=== PATIENT | male | born 1930 | race Caucasian/White ===

== ENCOUNTER 2016-10-08 14:52 | Inpatient (IN) | payer OTHER ==
[~2016-10-08] VITALS: Ht 182.9 cm; Wt 67.2 kg
--- NOTE | ~2016-10-08 | H ---
[facility] [place] [address] HISTORY AND PHYSICAL Name: DEANNA WEBER Room #: 246-P ADM IN M.R.#: [id number] Admission: 10/08/16 Attend Phys: Julian Tobar MD Discharge: Date of : [birth year]/24/[birth year] Report #: [id number] THIS REPORT FOR: //name// CC: Hans Tobar DATE OF SERVICE: 10/08/2016 History was primarily obtained from talking to the ER physician. The patient was referred from the [facility] secondary to altered mental status. HISTORY OF PRESENT ILLNESS: The patient is an 85-year-old male with history of urinary tract infection, was referred from the [facility] because of altered mental status and confusion. The patient is awake and he follows simple commands. He is oriented to self. He knows that is in the hospital. He does deny any complaint other than a productive cough. No chest pain, no dizziness. He is mostly bedridden and wheelchair bound. The patient was recently started on antibiotics for UTI with ciprofloxin at the [facility]. PAST MEDICAL HISTORY: No family available, no records from the [facility]. We will try to obtain records from the [facility]. ALLERGIES: No known drug allergy. HOME MEDICATIONS: Cipro has been included. SOCIAL HISTORY: Denies smoking, alcohol abuse, or illicit drug abuse. REVIEW OF SYSTEMS: Limited because of his altered mental status. CONSTITUTIONAL: He denies fever or chills. THROAT: Denies any sore throat. CARDIOVASCULAR: Denies any chest pain, no dizziness. RESPIRATORY: He does have a cough, which is productive. GASTROINTESTINAL: Denies any nausea, vomiting, abdominal pain. NEUROLOGIC: Denies any lower extremity pain. PHYSICAL EXAMINATION: VITAL SIGNS: Reviewed. Blood pressure 127/70, heart rate of 100 per minute, afebrile. He is satting 95% on room air. GENERAL: He does have a bad productive cough. He follows simple commands. EYES: Pupils are equal, reactive to light. THROAT: He has a dry oral mucosa. NECK: Supple, no JVD, no bruit, no lymphadenopathy. CARDIOVASCULAR SYSTEM: S1, S2. No S3, no murmur. [facility] [address] [place] [address] HISTORY AND PHYSICAL Name: DEANNA WEBER Room #: 246-P ADM IN M.R.#: [id number] Admission: 10/08/16 Attend Phys: Julian Tobar MD Discharge: Date of : 11/24/[birth year] Report #: [id number] CHEST: Bilateral air entry present, no crackles, no wheeze. ABDOMEN: Soft, bowel sounds present. No mass, no organomegaly, no tenderness. PERIPHERAL: No pedal edema. No calf tenderness. NEUROLOGICAL: The patient is awake. He is oriented to self. He knows that he is in the hospital. He is not oriented to time. He follows simple commands and able to move all 4 extremities. LABORATORY DATA: Reviewed. Chest x-ray was hyperinflated, chronic lung changes with no acute abnormality. There is some fibrosis. White count is markedly elevated at 24.7. BUN and creatinine are within normal limits. Platelets 256. Lactic acid is 1.8. AST and ALT are within normal limits. ProBNP is 928. Albumin is 3.8. EKG showed normal sinus rhythm with premature complexes. ASSESSMENT AND PLAN: 1. Altered mental status, most likely metabolic encephalopathy secondary to infectious process, could be urinary tract infection. He does have a productive cough ____. Chest x-ray showed chronic changes. We will obtain UA. We will repeat his chest x-ray in the morning. The patient will be continued on Zosyn and vancomycin. We will also obtain a CT scan of the brain to rule out any intracranial abnormality. 2. Deep venous thrombosis prophylaxis. He will be placed on SCD on the leg for DVT prophylaxis. We will repeat his labs in the morning. We will obtain his medical records from his [facility]. <ELECTRONICALLY SIGNED> By: Julian Tobar MD 10/09/16 1320 1935 99 Julian Tobar MD /nt
--- NOTE | ~2016-10-08 | HC ---
[facility] [place] [address] CONSULTATION Name: GUSDEANNA Room #: 311-P [facility] IN M.R.#: [id number] Admission: 10/08/16 Attend Phys: Julian Tobar MD Discharge: Date of : [birth year]/24/[birth year] Report #: [id number] THIS REPORT FOR: //name// CC: Hans Tobar DATE OF SERVICE: 10/10/2016 CHIEF COMPLAINT: Gallstones. HISTORY OF PRESENT ILLNESS: The patient is a very pleasant 85-year-old gentleman, admitted to [facility] on October 08. He was admitted with productive cough and was noted to have significant pneumonia with a dense pulmonary infiltrate visualized on CT. He also has history of atrial fibrillation and recent altered mental status. The patient is a resident at a local long-term facility. He has been recently treated for urinary tract infection. His past medical history is incomplete as the patient is unable to give excellent history. He does answer questions to some degree and follows commands. He is also pleasant and somewhat conversive, although he is quite forgetful. During his workup, gallstones were noted on CT scan and therefore, ultrasound of the abdomen was obtained, which showed cholelithiasis without gallbladder wall thickening or pericholecystic fluid. Bile ducts are unremarkable. ALLERGIES: No known drug allergies. HOME MEDICATIONS: The patient was recently on Cipro, no other listed home medications. SOCIAL HISTORY: Negative for tobacco, ETOH or drug use. REVIEW OF SYSTEMS: CONSTITUTIONAL: Negative for fevers or chills. HEENT: No dysphagia or odynophagia. The patient reports that he has been swallowing well. CARDIOVASCULAR: No chest pain or palpitations. PULMONARY: He does have a productive cough, no hemoptysis reported. GASTROINTESTINAL: Denies abdominal pain, nausea, vomiting or diarrhea. NEUROLOGIC: Denies focal weakness or tingling. GENITOURINARY: Denies dysuria or hematuria. ENDOCRINE: No heat or cold intolerance. PSYCHIATRIC: No depression or anxiety. PHYSICAL EXAMINATION: GENERAL: The patient is awake, alert and oriented. He is maintaining a sat in the high 90 percentiles on oxygen per nasal cannula. Normotensive at this time. [facility] [address] [place] [address] CONSULTATION Name: DEANNA WEBER Room #: 311-P [facility] IN M.R.#: [id number] Admission: 10/08/16 Attend Phys: Julian Tobar MD Discharge: Date of : [birth year] Report #: [id number] HEENT: Head is atraumatic and normocephalic. He does appear appropriate for stated age. No icterus is appreciated. Cranial nerves are grossly intact. NECK: Supple, with no jugular venous distention. LUNGS: Coarse bilateral. ABDOMEN: Soft, nondistended, nontender to palpation. No Leone sign. No rebound or guarding is appreciated. NEUROLOGIC: The patient moves all extremities and follows commands without obvious focal deficits. LABORATORY STUDIES: Reviewed. White count of 11.3, hemoglobin of 13.9, platelets of 213. BUN of 25, creatinine 0.9. Lactate of 1.3. TSH of 1.624, total bilirubin of 0.9. Urinalysis shows 2+ protein, 3+ blood, and 1-[address] scan of the chest from October 09 showed dense consolidation of pneumonia in the medial left lung base, right upper and right lower lobes with changes consistent with bronchiectasis and blebs; some mediastinal adenopathy, likely reactive. Old calcified hematoma noted in the spleen. Gallbladder distention with cholelithiasis was noted. IMPRESSION: An 85-year-old male patient admitted from long-term facility with pneumonia and productive cough. Incidental finding of cholelithiasis on CT scan of the chest. Ultrasound of the abdomen showed no gallbladder wall thickening, no pericholecystic fluid. The patient has no abdominal pain at this time and has been tolerating oral intake without pain, nausea or vomiting prior to admission. No evidence of acute cholecystitis or other hepatobiliary issues at this time. No recommendation for surgical intervention. Would recommend that the patient's diet be advanced once swallow evaluation has been completed. Consultation very much appreciated. <ELECTRONICALLY SIGNED> By: Mariano Mendez MD 10/12/16 0949 1521 1828 Mariano Mendez MD /nt
--- NOTE | ~2016-10-08 | EKG ---
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 : 1930 Requested By: Leoncio Larios Order Number: [id number] MD: Leoncio Larios Measurements Intervals Paisley Rate: 85 P: 84 DE: 155 QRS: -36 QRSD: 101 T: 70 QT: 392 QTc: 467 Interpretive Statements Sinus rhythm Atrial premature complex Left axis deviation Poor R wave progression Compared to ECG 10/08/2016 19:14:37 Sinus rhythm has replaced atrial fibrillation Electronically Signed On 10-11-2016 9:08:52 CDT by Leoncio Larios [email or web address] <ELECTRONICALLY SIGNED> By: Leoncio Larios MD, [facility] 10/11/1608 9 Leoncio Larios MD, [facility] /EPI
--- NOTE | ~2016-10-08 | EKG ---
[place] [address] [facility] [place] [address] ELECTROCARDIOGRAM REPORT Name: DEANNA WEBER Room #: 246-P ADM IN M.R.#: [id number] Admission: 10/08/16 Attend Phys: Julian Tobar MD Discharge: Date of : [birth year]/24/[birth year] Report #: [id number] THIS REPORT FOR: //name// [facility] Test Date: 2016-10-08 Test Time: 19:14:37 Pat Name: DEANNA WEBER Department: Room: [facility] Gender: Baker Laboratory: Raúl DOTSON : 1930 Requested By: Namrata Elkins Order Number: [id number] MD: Leoncio Larios Measurements Intervals Berkley Rate: 135 P: 87 MS: 140 QRS: -38 QRSD: 85 T: 73 QT: 292 QTc: 438 Interpretive Statements Sinus tachycardia with atrial premature complexes Left axis deviation Low voltage, precordial leads Poor R wave progression No previous ECG available for comparison Electronically Signed On 10-09-2016 10:49:47 CDT by Leoncio Larios [email or web address] <ELECTRONICALLY SIGNED> By: Leoncio Larios MD, [facility] 10/09/16 1049 13 13 Leoncio Larios MD, [facility] /EPI
--- NOTE | ~2016-10-08 | EKG ---
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
--- NOTE | ~2016-10-08 | 2DMMODE ---
[facility] [address] [place] [address] 2 D/M-MODE ECHOCARDIOGRAM Name: DEANNA WEBER Room #: 246-P ADM IN M.R.#: [id number] Admission: 10/08/16 Attend Phys: Raúl Leon Discharge: Date of : [birth year]/24/[birth year] Date of Service: 10/09/16 1439 Report #: [id number] THIS REPORT FOR: //name// APPROVED REPORT Study performed: 10/09/2016 08:30:20 EXAM: Comprehensive 2D, Doppler, and color-flow Echocardiogram Patient Location: Bedside Room #: 246 Status: routine BSA: 1.99 HR: 114 bpm BP: 118/54 mmHg Rhythm: Tachycardia Other Information Study Quality: Poor/Patient in ICU on Bipap Technically limited study due to uncooperative patient, poor echo windows. Limited views. Indications Acute respiratory failure. 2D Dimensions LVEF(%): 62.76 (>50%) IVSd: 8.07 (7-11mm) LVDd: 45.77 mm PWd: 7.49 (7-11mm) LVDs: 30.29 (25-40mm) Khan's LVEF: 62.76 % Aortic Valve AoV Peak George.: 1.98 m/s AO Peak Gr.: 15.62 mmHg LVOT Max P.27 mmHg LVOT Max V: 0.75 m/s Pulmonary Valve PV Peak George.: 0.80 m/s PV Peak Gr.: 2.57 mmHg Tricuspid Valve TR Peak George.: 2.22 m/s RAP Estimate: 10.00 mmHg TR Peak Gr.: 19.64 mmHg PA Pressure: 30.00 mmHg [facility] [address] [place] [address] 2 D/M-MODE ECHOCARDIOGRAM Name: DEANNA WEBER Room #: 246-P ADM IN .R.#: [id number] Admission: 10/08/16 Attend Phys: Raúl Leon Discharge: Date of : [birth year]/24/[birth year] Date of Service: 10/09/16 1439 Report #: [id number] Left Ventricle The left ventricle is normal size. Regional wall motion is not well visualized but grossly normal. There is normal left ventricular wall thickness. Left ventricular systolic function is low normal. LVEF is 50-55%. Right Ventricle Right ventricle is grossly normal in size. Atria The left atrium size is normal. The right atrium size is normal. Aortic Valve The aortic valve is sclerotic. No aortic regurgitation is present. There is no aortic valvular stenosis. Mitral Valve Mitral valve leaflets are grossly normal Trace mitral regurgitation. Tricuspid Valve The tricuspid valve is normal in structure. There is mild tricuspid regurgitation. The right atrial pressure is estimated at 15 mmHg. There is borderline mild pulmonary hypertension with an estimated PAP of 30mmHg. Pulmonic Valve The pulmonary valve is normal in structure. Trace pulmonic regurgitation. Great Vessels Aortic root is not well visualized. IVC is dilated and collapses <50% with inspiration. Pericardium There is no pericardial effusion. <Conclusion> Limited echocardiogram Left ventricular systolic function is low normal. Regional wall motion is not well visualized but grossly normal. Right ventricle is grossly normal in size. The aortic valve is sclerotic, no aortic valvular stenosis or insufficiency. Mitral valve leaflets are grossly normal. Trace mitral [facility] [address] [place] [address] 2 D/M-MODE ECHOCARDIOGRAM Name: DEANNA WEBER Room #: 246-P ADM IN M.R.#: [id number] Admission: 10/08/16 Attend Phys: Raúl Leon Discharge: Date of : 11/24/28 Date of Service: 10/09/161438 Report #: [id number] regurgitation. Pulmonary artery pressure could not be reliably ascertained There is no pericardial effusion. <ELECTRONICALLY SIGNED> By: Leoncio Larios MD, FACC 10/09/161438 38 38 Leoncio Larios MD, FACC /INF
--- NOTE | ~2016-10-08 | HC ---
[facility] [place] [address] CONSULTATION Name: DEANNA WEBER Room #: 311-P [facility] IN M.R.#: [id number] Admission: 10/08/16 Attend Phys: Julian Tobar MD Discharge: 10/12/16 Date of : [birth year]/24/[birth year] Report #: [id number] THIS REPORT FOR: //name// CC: Hans Tobar PULMONARY CONSULTATION REFERRING PHYSICIAN: Julian Tobar MD. REASON FOR REFERRAL: Acute respiratory distress. HISTORY OF PRESENT ILLNESS: The patient is an 85-year-old white male who was brought to the emergency room with altered mental status. He was admitted for respiratory failure and possible sepsis. A pulmonary consultation was requested. The patient is currently on noninvasive positive pressure ventilation. He appears mildly distressed, unable to answer questions adequately. He states that he is getting plenty of air. The patient is a resident of a [facility]. He was felt to be normal until later that afternoon; the patient was found to be less alert. The patient had complained of cough productive of sputum. Portable chest x-ray performed on admission was relatively clear. Hyperexpansion is noted. According to records, he was also recently treated for urinary tract infection. PAST MEDICAL HISTORY: Incomplete at this time. The patient is not able to provide history. No records are available. Records have been requested from senior living. PAST SURGICAL HISTORY: Unknown at this time. ALLERGIES: No apparent allergies noted. MEDICATIONS: Reviewed in the MAR. FAMILY HISTORY: Unknown. SOCIAL HISTORY: No recent history of tobacco or alcohol use. He resides in a senior citizen facility. Medical directive DNR according to the records. REVIEW OF SYSTEMS: Deferred. [facility] [address] [address] CONSULTATION Name: DEANNA WEBER Room #: 311-P DIS IN M.R.#: [id number] Admission: 10/08/16 Attend Phys: Julian Tobar MD Discharge: 10/12/16 Date of : [birth year]/24/[birth year] Report #: [id number] PHYSICAL EXAMINATION: GENERAL: On exam, he is awake, but in moderate respiratory distress, tolerating noninvasive positive pressure ventilation. VITAL SIGNS: Temperature is 99.4 degrees Fahrenheit, pulse is 100, respiratory rate is 24, blood pressure is 108/74 mmHg and saturations 100%. HEENT: Normocephalic, atraumatic. NECK: Supple, without any lymphadenopathy or thyromegaly. CHEST: Breath sounds are fair with few scattered crackles in the bases. No obvious wheezes. CARDIOVASCULAR: Heart sounds are distant. No obvious murmurs or gallop. Pulses are 2+/4+ bilaterally. ABDOMEN: Soft, nontender. No organomegaly or masses felt. GENITOURINARY: Deferred. RECTAL: Deferred. EXTREMITIES: There is no edema, cyanosis or clubbing. LABORATORY DATA: Again, grossly unremarkable, with hyperexpansion, no obvious infiltrates seen. EKG shows left axis deviation, sinus tachycardia, poor R-wave progression and otherwise, no acute ischemic changes. Electrolytes unremarkable. Creatinine is normal. WBC 24,700, hemoglobin is 15.7 without bandemia. Albumin is 3.8. Arterial blood gas on admission revealed pH of 7.19, pCO2 of 47 and pO2 of 304 on 100% FIO2. Followup arterial blood gas revealed pH of 7.39, pCO2 of 37 and pO2 of 75 on FIO2 of 60%. IMPRESSION: 1. Altered mental status, likely related to toxic and metabolic encephalopathy due to presumed severe sepsis. 2. Acute respiratory failure. The patient initially exhibited hypercarbia, now some element of hyperventilation due to severe sepsis. He has mild acidosis. This will be consistent with severe septic picture. 3. Leukocytosis, low grade fever, consistent with severe sepsis. Possible etiology includes urinary tract infection, possible pneumonia. Although the chest x-ray shows relatively clear lung field, the patient may have underlying chronic lung disease. Cannot rule out early pneumonia. 4. Incomplete history. RECOMMENDATIONS: Agree with broad spectrum antibiotics, continue noninvasive positive pressure ventilation as you are. DVT and GI prophylaxis will be addressed. With the patient's advanced age and what appears to be generalized debility and weakness, overall prognosis felt to be poor. If the patient's symptoms deteriorates and he appears to be suffering, I would recommend comfort measures at that time. [address] [address] CONSULTATION Name: DEANNA WEBER Room #: 311-P DIS IN M.R.#: [id number] Admission: 10/08/16 Attend Phys: Julian Tobar MD Discharge: 10/12/16 Date of : [birth year]/24/[birth year] Report #: [id number] Thank you for this consultation. <ELECTRONICALLY SIGNED> By: Octaviano Vazquez MD 10/16/16 1706 1310 1426 Octaviano Vazquez MD /nt
--- NOTE | ~2016-10-08 | EKG ---
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 : 1930 Requested By: Mac Corcoran Order Number: [id number] MD: Leoncio Larios Measurements Intervals Gary Rate: 97 P: 85 KS: 164 QRS: 8 QRSD: 97 T: 76 QT: 361 QTc: 459 Interpretive Statements Sinus rhythm Atrial premature complexes Low voltage, extremity and precordial leads Nonspecific ST and T wave abnormality No previous ECG available for comparison Electronically Signed On 10-09-2016 10:46:28 CDT by Leoncio Larios [email or web address] <ELECTRONICALLY SIGNED> By: Leoncio Larios MD, [facility] 10/09/16 1046 36 36 Leoncio Larios MD, [facility] /EPI
--- NOTE | ~2016-10-08 | HC ---
[facility] [place] [address] CONSULTATION Name: DEANNA WEBER Room #: 311-P [facility] IN M.R.#: [id number] Admission: 10/08/16 Attend Phys: Julian Tobar MD Discharge: Date of : [birth year] Report #: [id number] THIS REPORT FOR: //name// CC: Hans Tobar REASON FOR CONSULTATION: Atrial fibrillation. HISTORY OF PRESENT ILLNESS: The patient is an 85-year-old gentleman who was admitted with altered mental status and productive cough. His evaluation is notable for a dense pulmonary infiltrate consistent with pneumonia. In this setting, he developed atrial fibrillation with a moderate ventricular response. This was clinically asymptomatic rhythm disturbance. He denies a prior cardiac history. He denies history of atrial dysrhythmias, including atrial fibrillation. He denies chest heaviness or pressure. He denies heart failure symptoms, including orthopnea, paroxysmal nocturnal dyspnea or lower extremity edema. MEDICATIONS: He takes no medicines on a regular basis. PAST MEDICAL HISTORY: Past history is notable for no significant illnesses or surgeries. SOCIAL HISTORY: He is a former smoker, not currently. 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 FAMILY HISTORY: Unremarkable for premature coronary disease. REVIEW OF SYSTEMS: All systems negative, except as that noted above. Should note that he is mostly bedridden and wheelchair bound. PHYSICAL EXAMINATION: GENERAL: Exam reveals a pleasant elderly gentleman in no distress. VITAL SIGNS: Blood pressure is 96/51, heart rate of 110 and irregular. He is afebrile. HEENT: There is neither xanthelasma, subcutaneous xanthomata, oral mucosal or digital cyanosis or kyphoscoliosis present. CHEST: Reveals diminished breath sounds at both bases. CARDIAC EXAMINATION: An irregularly irregular rhythm with normal S1, S2. No murmurs or rubs. ABDOMEN: Soft and nontender. EXTREMITIES: Without cyanosis, clubbing or edema. Radial pulses are 2+. NEUROLOGIC: He is alert with a nonfocal exam. LABORATORY DATA: EKG demonstrates atrial fibrillation with a moderate ventricular response. His presenting EKG with sinus rhythm with atrial premature complexes. Sodium is 141, potassium 3.4 and creatinine 1.4. ProBNP [facility] [address] [place] [address] CONSULTATION Name: DEANNA WEBER Room #: 311-P ADM IN M.R.#: [id number] Admission: 10/08/16 Attend Phys: Julian Tobar MD Discharge: Date of : [birth year] Report #: [id number]. White count 14.2, hemoglobin 15, hematocrit 46 and platelet count 208,000. CT of the chest demonstrated dense infiltrate pneumonia involving the left lower lobe. There are some bronchiectatic changes and blood formation. IMPRESSION: 1. Pneumonia. 2. Paroxysmal atrial fibrillation, clinically asymptomatic. 3. Chronic obstructive pulmonary disease; bronchiectasis. RECOMMENDATIONS: 1. Thyroid function studies. 2. I have reviewed his recent echocardiogram, which demonstrated normal ejection fraction and no significant valvular heart disease. 3. Given this atrial dysrhythmia occurring in the setting of pneumonia and hypoxemia, would recommend a short course of antiarrhythmic therapy, the most affective being amiodarone. I anticipate a short 2- to 3-month course. Thank you for asking me to participate in the patient's care. <ELECTRONICALLY SIGNED> By: Leoncio Larios MD, [facility] 10/12/16 0816 [id number] Leoncio Larios MD, FACC /nt
[2016-10-08 14:53] VITALS: BP 112/57
[2016-10-08] MEDS ORDERED: CIPRO500 MG PO (15:07)
[2016-10-08 15:44] LABS: HEMATOCRIT 47.4 % (42.0-52.0); HEMOGLOBIN 15.7 gm/dL (14.0-18.0); MCH 33.5 pg (26.0-34.0); MCHC 33.2 g/dL (28.0-37.0); PLATELET COUNT 256 thou/uL (150-400); RDW 14.7 % (10.5-14.5); WBC 24.7 thou/uL (4.0-11.0)
[2016-10-08 15:47] LABS: MANUAL DIFF YES
[2016-10-08 15:53] LABS: ANION GAP 11 mmol/L (7-16); BUN 13 mg/dL (7-18); CHLORIDE 102 mmol/L (98-107); CO2 27 mmol/L (21-32); POTASSIUM 3.9 mmol/L (3.5-5.1); SODIUM 140 mmol/L (136-145)
[2016-10-08 15:54] LABS: CALCIUM 8.9 mg/dL (8.5-10.1); GLUCOSE 116 mg/dL (74-106)
[2016-10-08 16:03] LABS: ABSOLUTE NEUTROPHILS 20.7 thou/uL (1.4-8.2); ANISOCYTOSIS 1+; TOTAL CELL COUNT 100
[2016-10-08 16:05] LABS: MACROCYTES 1+; POLYCHROMASIA OCCASIONAL
[2016-10-08 16:06] LABS: ALBUMIN 3.8 g/dL (3.4-5.0); ALKALINE PHOSPHATASE 74 U/L (46-116); SGOT 26 U/L (15-37); SGPT 15 U/L (30-65); TOTAL BILIRUBIN 1.1 mg/dL (<0.1-1.0); TOTAL PROTEIN 7.3 g/dL (6.4-8.2)
[2016-10-08 16:07] LABS: NT-PRO BRAIN NAT PEPTIDE 928 pg/mL (<300); TROPONIN-I < 0.04 ng/mL (<0.04-0.07)
[2016-10-08 18:35] VITALS: BP 127/70
[2016-10-08 19:53] LABS: ABG SAMPLE TYPE ARTERIAL; BE(vivo) -10.3 mmol/L (-2 to +3); HCO3 17.9 mmol/L (22.0-26.0); O2Hb 97.4 % (92.0-98.0); PCO2 47.4 mmHg (35.0-45.0); PO2 304.4 mmHg (80.0-100.0); pH 7.194 (7.360-7.450); sO2 99.6 % (92.0-98.0); tCO2 19.3 mmol/L (24.0-30.0)
[2016-10-08 19:54] LABS: Face Shield NRBM %
[2016-10-08 23:57] VITALS: BP 104/67
[2016-10-09] VITALS (60 sets, daily range): BP systolic 82–176; BP diastolic 40–100
[2016-10-09 07:09] LABS: HEMATOCRIT 48.6 % (42.0-52.0); HEMOGLOBIN 16.1 gm/dL (14.0-18.0); MCH 33.4 pg (26.0-34.0); MCV 101.2 fL (80.0-100.0); PLATELET COUNT 204 thou/uL (150-400); RBC 4.81 mil/uL (4.50-6.00); RDW 14.7 % (10.5-14.5); WBC 22.1 thou/uL (4.0-11.0)
[2016-10-09 07:11] LABS: MANUAL DIFF YES
[2016-10-09 07:26] LABS: CREATININE 1.1 mg/dL (0.7-1.3); MAGNESIUM 1.8 mg/dL (1.8-2.4)
[2016-10-09 08:22] LABS: ABSOLUTE NEUTROPHILS 19.4 thou/uL (1.4-8.2); TOTAL CELL COUNT 100
[2016-10-09 08:23] LABS: ANISOCYTOSIS 1+
[2016-10-09 08:26] LABS: ABG COMMENT BIPAP 16/8 R12; ABG SAMPLE TYPE ARTERIAL; BE(vivo) -2.1 mmol/L (-2 to +3); HCO3 22.3 mmol/L (22.0-26.0); LACTATE 1.55 mmol/L (0.5-2.0); O2(CT) 21.5 mL/dL (15.0-23.0); O2Hb 94.9 % (92.0-98.0); PCO2 37.1 mmHg (35.0-45.0); PO2 75.4 mmHg (80.0-100.0); STICK SITE R.BRACHIAL; pH 7.396 (7.360-7.450); sO2 95.2 % (92.0-98.0); tCO2 23.4 mmol/L (24.0-30.0)
[2016-10-09 21:42] LABS: ICTOTEST (BILI CONFIRMATORY) Negative (Negative); URINE BILIRUBIN NEGATIVE (Negative); URINE BLOOD 3+ (Negative); URINE COLOR YELLOW; URINE GLUCOSE-RANDOM* NEGATIVE (Negative); URINE KETONES NEGATIVE (Negative); URINE LEUKOCYTES-REFLEX NEGATIVE (Negative); URINE PROTEIN (DIPSTICK) 2+ (Negative); URINE SPECIFIC GRAVITY 1.015 (1.003-1.035)
[2016-10-09 22:08] LABS: CASTS None Seen /LPF (None Seen); SQUAMOUS 0-3 Few /LPF (0-3); URINE RBC >20 Many /HPF (0-2); URINE WBC-REFLEX 0-5 Rare /HPF (0-5)
[2016-10-09 22:09] LABS: CRYSTALS None Seen /LPF (None Seen)
[2016-10-10] VITALS (19 sets, daily range): BP systolic 83–112; BP diastolic 41–78
[2016-10-10 02:55] LABS: HEMATOCRIT 46.3 % (42.0-52.0); HEMOGLOBIN 15.3 gm/dL (14.0-18.0); MCH 33.6 pg (26.0-34.0); MCV 101.8 fL (80.0-100.0); PLATELET COUNT 208 thou/uL (150-400); RBC 4.55 mil/uL (4.50-6.00); RDW 14.8 % (10.5-14.5); WBC 14.2 thou/uL (4.0-11.0)
[2016-10-10 02:57] LABS: MANUAL DIFF YES
[2016-10-10 03:04] LABS: CALCIUM 8.7 mg/dL (8.5-10.1); CREATININE 1.4 mg/dL (0.7-1.3); POTASSIUM 3.4 mmol/L (3.5-5.1)
[2016-10-10 08:53] LABS: ABSOLUTE NEUTROPHILS 12.9 thou/uL (1.4-8.2); PLATELET ESTIMATE NORMAL; TOTAL CELL COUNT 100
[2016-10-10 09:10] LABS: DIRECT BILIRUBIN 0.4 mg/dL (<0.1-0.3); TOTAL BILIRUBIN 0.9 mg/dL (<0.1-1.0); TOTAL PROTEIN 6.6 g/dL (6.4-8.2)
[2016-10-11 00:20] VITALS: BP 101/61
[2016-10-11 04:40] LABS: HEMATOCRIT 41.6 % (42.0-52.0); HEMOGLOBIN 13.9 gm/dL (14.0-18.0); MCH 33.5 pg (26.0-34.0); MCHC 33.3 g/dL (28.0-37.0); MCV 100.5 fL (80.0-100.0); PLATELET COUNT 213 thou/uL (150-400); RBC 4.14 mil/uL (4.50-6.00); RDW 14.7 % (10.5-14.5); WBC 11.3 thou/uL (4.0-11.0)
[2016-10-11 04:53] LABS: CALCIUM 8.9 mg/dL (8.5-10.1); CREATININE 0.9 mg/dL (0.7-1.3); MAGNESIUM 2.2 mg/dL (1.8-2.4); POTASSIUM 3.5 mmol/L (3.5-5.1)
[2016-10-11 04:58] LABS: MANUAL DIFF YES
[2016-10-11 05:00] VITALS: BP 127/70
[2016-10-11 07:52] LABS: ABSOLUTE NEUTROPHILS 8.8 thou/uL (1.4-8.2); ATYPICAL LYMPHS 1 %; METAMYELOCYTES 2 %; MYELOCYTES 1 %; TOTAL CELL COUNT 100
[2016-10-11 07:53] LABS: ANISOCYTOSIS 1+
[2016-10-11 08:57] VITALS: BP 120/71
[2016-10-11 16:22] VITALS: BP 131/69
[2016-10-11 19:45] VITALS: BP 115/62
[2016-10-12 04:03] LABS: HEMATOCRIT 39.7 % (42.0-52.0); MCH 34.9 pg (26.0-34.0); MCHC 35.2 g/dL (28.0-37.0); PLATELET COUNT 219 thou/uL (150-400); RBC 4.01 mil/uL (4.50-6.00); RDW 14.3 % (10.5-14.5); WBC 9.6 thou/uL (4.0-11.0)
[2016-10-12 04:04] VITALS: BP 119/57
[2016-10-12 04:10] LABS: CALCIUM 8.5 mg/dL (8.5-10.1); CREATININE 0.7 mg/dL (0.7-1.3)
[2016-10-12 04:12] LABS: POTASSIUM 2.9 mmol/L (3.5-5.1)
[2016-10-12 04:14] LABS: MANUAL DIFF YES
[2016-10-12 05:13] LABS: ABSOLUTE NEUTROPHILS 7.4 thou/uL (1.4-8.2); ATYPICAL LYMPHS 3 %; LARGE PLATELETS RARE; MYELOCYTES 2 %; PROMYELOCYTES 1 %; TOTAL CELL COUNT 100
[2016-10-12 08:00] VITALS: BP 129/71
[2016-10-12] MEDS ORDERED: PEPCID20 MG PO (14:41)
[2016-10-12] MEDS ORDERED: ENOXAPARIN30 MG/0.1 SUBQ (14:41)
[2016-10-12] MEDS ORDERED: PROBIOTIC1 EAC1 PO (14:41)
[2016-10-12] MEDS ORDERED: DUONEB 2.5-0.5 M3 ML INH (14:41)
[2016-10-12] MEDS ORDERED: COLACE100 MG PO (14:41)
[2016-10-12] MEDS ORDERED: AUGMENTIN 875-1 EACH PO (14:41)
[2016-10-12] MEDS ORDERED: PACERONE 200 M200 M1 PO ×2 (14:41)
[2016-10-12] MEDS ORDERED: ASPIR 8181 MG PO (14:41)
== END 2016-10-12 17:21 | DRG 871 ==
LOC: ER 14:52 → ICU 17:35 → EROBS 17:35 → 3N 18:52 → ICU 19:27 → 3N 20:17 → ICU 10-09 03:57 → 3N 10-10 15:30
PROVIDERS: Emergency Medicine; Internal Medicine; Nurse Practitioner Acute Care
PROC: 5A09457 Assistance with Respiratory Ventilation, 24-96 Consecutive Hours, Continuous Positive Airway Pressure (ICD-10-PCS; principal; 2016-10-08)
DX: A41.9 Sepsis, unspecified organism (principal); J96.02 Acute respiratory failure with hypercapnia; J18.9 Pneumonia, unspecified organism; G92 Toxic encephalopathy; J44.0 Chronic obstructive pulmonary disease with (acute) lower respiratory infection; I48.0 Paroxysmal atrial fibrillation; Z66 Do not resuscitate; E87.6 Hypokalemia; K80.20 Calculus of gallbladder without cholecystitis without obstruction; R65.20 Severe sepsis without septic shock; Z79.899 Other long term (current) drug therapy; Z87.440 Personal history of urinary (tract) infections
CPT/HCPCS: 10096; 10203

== ENCOUNTER 2017-07-17 17:58 | Inpatient (IN) | payer OTHER ==
[~2017-07-17] VITALS: Ht 182.9 cm; Wt 62.6 kg
--- NOTE | ~2017-07-17 | HC ---
[facility] [place] [address] CONSULTATION Name: DEANNA WEBER Room #: 224-P ADM IN M.R.#: [id number] Admission: 07/17/17 Attend Phys: Bipin Hunt MD Discharge: Date of : [birth year] Report #: [id number] THIS REPORT FOR: //name// CC: Hans Hunt DATE OF SERVICE: 07/20/2017 CONSULTATION: Infectious Diseases. HISTORY OF PRESENT ILLNESS: Yas Weber is an 86-year-old white male who comes to the hospital because his facility noted that he has been removing his Lopez catheter every day for the last 3 days. They have been unable to reestablish Lopez catheter drainage, so he was brought to the hospital for urological evaluation and consideration of additional options. In the hospital, it was noted that the urine now grows MRSA. We started on vancomycin and Infectious Disease consultation was requested. PAST MEDICAL HISTORY: Includes dementia, atrial fibrillation, COPD, coronary artery disease. I assume that the patient has a Lopez catheter because of urinary retention. FAMILY HISTORY AND SOCIAL HISTORY: Somewhat limited because of the patient's dementia. He does answer questions, but his answers are not reliable. MEDICATION RECONCILIATION: His current medications include acetaminophen 650 mg p.o. q. 4h. p.r.n., DuoNeb inhaler q.4h., amiodarone 200 mg daily, aspirin 81 mg daily, Colace 100 mg b.i.d., famotidine 20 mg daily, tamsulosin 0.4 mg at bedtime, furosemide 20 mg daily, Claritin 10 mg daily, Remeron 7.5 mg at bedtime, ondansetron p.r.n., potassium p.r.n., Senokot p.r.n., vancomycin 750 mg IV q. 24 hours. The patient was on Rocephin and this was discontinued this evening. ALLERGIES: The patient has no drug allergies. REVIEW OF SYSTEMS: The patient denies any fevers, chills, sweats. Denies any head, neck or chest complaints. He denies any nausea, vomiting, diarrhea, or constipation. The patient denies any urinary complaints. He denies any problems with his catheter. He is not having any discomfort in the genitals. He says he does hardly know there is a catheter in his penis. Extremities: No complaints. PHYSICAL EXAMINATION: GENERAL: The patient appears his stated age, alert, verbal, not in any distress. VITAL SIGNS: Normal. The patient is afebrile, blood pressure 98/45. [place] [address] CONSULTATION Name: DEANNA WEBER Room #: 224-P [facility] IN M.R.#: [id number] Admission: 07/17/17 Attend Phys: Bipin Hunt MD Discharge: Date of : [birth year] Report #: [id number] SKIN: Shows no rash, no lesions. ENT: Negative. CARDIAC: Heart sounds normal. LUNGS: Clear. ABDOMEN: Belly thin, soft, not tender. His weight is 62.5 kg. GENITOURINARY: The genitalia shows the Lopez catheter. There is no bleeding. There is no swelling. There is no sign of overt trauma. The urine in the collection tubing appears clear. EXTREMITIES: Unremarkable. LABORATORY DATA: White count is 10.0, hemoglobin 13, hematocrit 39.6, platelets 347,000. Electrolytes normal. BUN 19, creatinine 0.9. Urine shows MRSA sensitive to vancomycin, linezolid and trimethoprim sulfa. Normally, I would consider this asymptomatic bacteriuria with normal white count, normal temperature and no symptoms. However, with the recent trauma from pulling the Lopez out, I worry about a communication between the blood stream and the urine. With MRSA in the urine, the patient will be at risk for MRSA bacteremia. I suggest we treat the patient with vancomycin 750 mg IV q. 24 hours x 3 doses. At that point, we can change the patient to Bactrim for additional 5 days. The more critical aspects is going to be whether the patient can maintain Lopez catheter or if alternatively he may be able to be managed with no catheter at all. If the patient does have the Lopez catheter, he probably does not need to be on tamsulosin, but a voiding trial after the initial swelling from the trauma has resolved may be in order. I appreciate the opportunity of input in the care of the patient. I will be happy to follow him through the weekend until Dr. Gerber returns on Saturday. Thank you for this consultation. <ELECTRONICALLY SIGNED> By: Burak Henson MD 07/21/17 [id number] Burak Henson MD /nt
[~2017-07-17 17:58] MED LIST: ASPIR 8181 MG PO; AUGMENTIN 875-1 EACH PO; CIPRO500 MG PO; COLACE100 MG PO; DUONEB 2.5-0.5 M3 ML INH; ENOXAPARIN30 MG/0.1 SUBQ; PACERONE 200 M200 M1 PO; PEPCID20 MG PO; PROBIOTIC1 EAC1 PO
[2017-07-17 18:00] VITALS: BP 128/71
[2017-07-17 18:46] LABS: HEMATOCRIT 39.7 % (42.0-52.0); HEMOGLOBIN 13.4 gm/dL (14.0-18.0); MCH 33.4 pg (26.0-34.0); MCHC 33.9 g/dL (28.0-37.0); MCV 98.6 fL (80.0-100.0); PLATELET COUNT 391 thou/uL (150-400); RBC 4.02 mil/uL (4.50-6.00); RDW 16.3 % (10.5-14.5); WBC 12.7 thou/uL (4.0-11.0)
[2017-07-17 18:46] LABS: URINE BILIRUBIN NEGATIVE (Negative); URINE BLOOD 1+ (Negative); URINE CLARITY CLEAR; URINE COLOR YELLOW; URINE GLUCOSE-RANDOM* NEGATIVE (Negative); URINE KETONES NEGATIVE (Negative); URINE NITRITE-REFLEX NEGATIVE (Negative); URINE PROTEIN (DIPSTICK) NEGATIVE (Negative); URINE SPECIFIC GRAVITY 1.015 (1.005-1.035)
[2017-07-17 18:47] LABS: URINE LEUKOCYTES-REFLEX 3+ (Negative)
[2017-07-17 18:52] LABS: CALCIUM 8.8 mg/dL (8.5-10.1); POTASSIUM 4.9 mmol/L (3.5-5.1)
[2017-07-17 18:56] LABS: BACTERIA-REFLEX 1-9 Few /HPF (None Seen); CASTS None Seen /LPF (None Seen); CRYSTALS None Seen /LPF (None Seen); SQUAMOUS None Seen /LPF (0-3); URINE RBC 0-2 Rare /HPF (0-2)
[2017-07-17 18:58] LABS: ALBUMIN 3.6 g/dL (3.4-5.0); TOTAL BILIRUBIN 0.4 mg/dL (<0.1-1.0)
[2017-07-17 19:09] LABS: METAMYELOCYTES 1 %; MYELOCYTES 1 %
[2017-07-17 19:10] LABS: ABSOLUTE NEUTROPHILS 8.3 thou/uL (1.4-8.2); ANISOCYTOSIS 1+
[2017-07-17 20:17] VITALS: BP 113/59
[2017-07-17 20:48] VITALS: BP 124/58
[2017-07-17] MEDS ORDERED: FLOMAX0.4 MG PO (22:10)
[2017-07-17] MEDS ORDERED: FEXOFENADINE HC60 MG PO (22:10)
[2017-07-17] MEDS ORDERED: LASIX 20 MG TAB20 MG PO (22:11)
[2017-07-17] MEDS ORDERED: NAPROSYN500 MG PO (22:11)
[2017-07-17] MEDS ORDERED: REMERON15 M2 PO (22:12)
[2017-07-17] MEDS ORDERED: POTASSIUM20 PO (22:12)
[2017-07-17] MEDS ORDERED: SENNA8.6 MG PO (22:15)
[2017-07-18 04:29] VITALS: BP 98/61
[2017-07-18 06:49] LABS: HEMATOCRIT 38.2 % (42.0-52.0); HEMOGLOBIN 12.9 gm/dL (14.0-18.0); MCH 33.2 pg (26.0-34.0); MCHC 33.8 g/dL (28.0-37.0); MCV 98.3 fL (80.0-100.0); RBC 3.89 mil/uL (4.50-6.00); RDW 16.6 % (10.5-14.5); WBC 9.9 thou/uL (4.0-11.0)
[2017-07-18 06:59] LABS: CALCIUM 8.3 mg/dL (8.5-10.1); CREATININE 0.9 mg/dL (0.7-1.3); POTASSIUM 4.5 mmol/L (3.5-5.1)
[2017-07-18 07:23] VITALS: BP 112/63
[2017-07-18 15:46] VITALS: BP 96/43
[2017-07-18 20:00] VITALS: BP 98/42
[2017-07-19 03:55] VITALS: BP 123/61
[2017-07-19 07:59] VITALS: BP 112/39
[2017-07-19 15:47] VITALS: BP 99/46
[2017-07-19 20:16] VITALS: BP 112/54
[2017-07-20 07:09] LABS: HEMATOCRIT 39.6 % (42.0-52.0); HEMOGLOBIN 13.2 gm/dL (14.0-18.0); MCH 32.9 pg (26.0-34.0); MCHC 33.4 g/dL (28.0-37.0); MCV 98.5 fL (80.0-100.0); PLATELET COUNT 347 thou/uL (150-400); RBC 4.01 mil/uL (4.50-6.00); RDW 16.4 % (10.5-14.5); WBC 10.1 thou/uL (4.0-11.0)
[2017-07-20 07:14] LABS: CALCIUM 8.5 mg/dL (8.5-10.1); CREATININE 0.9 mg/dL (0.7-1.3); POTASSIUM 4.4 mmol/L (3.5-5.1)
[2017-07-20 08:19] LABS: ABSOLUTE NEUTROPHILS 5.6 thou/uL (1.4-8.2); ANISOCYTOSIS 1+; METAMYELOCYTES 3 %; MYELOCYTES 2 %
[2017-07-20 08:25] VITALS: BP 122/58
[2017-07-20 20:42] VITALS: BP 98/45
[2017-07-21 07:42] LABS: HEMOGLOBIN 12.9 gm/dL (14.0-18.0); MCH 32.8 pg (26.0-34.0); MCHC 33.2 g/dL (28.0-37.0); PLATELET COUNT 345 thou/uL (150-400); RBC 3.94 mil/uL (4.50-6.00); RDW 16.4 % (10.5-14.5); WBC 10.7 thou/uL (4.0-11.0)
[2017-07-21 07:50] LABS: CALCIUM 8.3 mg/dL (8.5-10.1); CREATININE 0.8 mg/dL (0.7-1.3); POTASSIUM 4.3 mmol/L (3.5-5.1)
[2017-07-21 08:16] LABS: ABSOLUTE NEUTROPHILS 7.2 thou/uL (1.4-8.2); ANISOCYTOSIS 1+
[2017-07-21 08:20] VITALS: BP 121/64
[2017-07-21 19:56] VITALS: BP 117/50
[2017-07-22 07:10] VITALS: BP 123/62
[2017-07-22 20:03] VITALS: BP 135/65
[2017-07-23 07:48] LABS: RDW 16.3 % (10.5-14.5); WBC 10.6 thou/uL (4.0-11.0)
[2017-07-23 07:50] LABS: HEMATOCRIT 38.2 % (42.0-52.0); HEMOGLOBIN 12.8 gm/dL (14.0-18.0); MCH 32.9 pg (26.0-34.0); MCHC 33.5 g/dL (28.0-37.0); MCV 98.3 fL (80.0-100.0); PLATELET COUNT 323 thou/uL (150-400); RBC 3.88 mil/uL (4.50-6.00)
[2017-07-23 07:58] LABS: CALCIUM 8.6 mg/dL (8.5-10.1); CREATININE 0.9 mg/dL (0.7-1.3); POTASSIUM 4.2 mmol/L (3.5-5.1)
[2017-07-23 08:02] VITALS: BP 111/56
[2017-07-23 08:37] LABS: ABSOLUTE NEUTROPHILS 6.5 thou/uL (1.4-8.2); ANISOCYTOSIS SLIGHT; METAMYELOCYTES 1 %; MICROCYTES SLIGHT
[2017-07-23] MEDS ORDERED: ACETAMINOPHEN325 M1 PO (13:28)
[2017-07-23] MEDS ORDERED: BACTRIM DS TAB1 EACH PO (13:28)
== END 2017-07-23 16:15 | DRG 698 ==
LOC: ER 17:58 → 4W 19:32 → EROBS 19:32 → SICU 19:32 → 4W 20:45 → SICU 07-19 19:00
PROVIDERS: Hospitalist; Nurse Practitioner Family; Physician Assistant
DX: S37.30XA Unspecified injury of urethra, initial encounter (principal); G93.40 Encephalopathy, unspecified; N39.0 Urinary tract infection, site not specified; R33.9 Retention of urine, unspecified; F03.90 Unspecified dementia, unspecified severity, without behavioral disturbance, psychotic disturbance, mood disturbance, and anxiety; J44.9 Chronic obstructive pulmonary disease, unspecified; I25.10 Atherosclerotic heart disease of native coronary artery without angina pectoris; I48.2 Chronic atrial fibrillation; M19.90 Unspecified osteoarthritis, unspecified site; K21.9 Gastro-esophageal reflux disease without esophagitis; M62.84 Sarcopenia; X58.XXXA Exposure to other specified factors, initial encounter; B95.62 Methicillin resistant Staphylococcus aureus infection as the cause of diseases classified elsewhere; Z87.81 Personal history of (healed) traumatic fracture; Z79.82 Long term (current) use of aspirin; Z79.899 Other long term (current) drug therapy; Y93.89 Activity, other specified; Y92.89 Other specified places as the place of occurrence of the external cause; Y99.8 Other external cause status
CPT/HCPCS: 10040; 15002